=== PATIENT | male | born 1980 | race Two or more races ===

== ENCOUNTER 2017-03-29 19:54 | Emergency (ER) | payer SELFPAY ==
[~2017-03-29] VITALS: Ht 180.3 cm; Wt 81.6 kg
[2017-03-29 20:04] VITALS: BP 174/98
[2017-03-29] MEDS ORDERED: Metoclopramide 10mg/2ml Inj IVP ONE (20:45)
[2017-03-29 21:18] LABS: EOSINOPHILS % (AUTO) 0.9 % (0.0-3.0); LYMPHOCYTES % (AUTO) 30.8 % (20.0-45.0); MEAN CORPUSCULAR HEMOGLOBIN 28.7 PG (27.0-31.0); MEAN CORPUSCULAR HGB CONC 32.1 G/DL (32.0-36.0); MEAN CORPUSCULAR VOLUME 90 FL (80-99); MEAN PLATELET VOLUME 5.2 FL (6.5-10.1); MONOCYTES % (AUTO) 5.5 % (1.0-10.0); NEUTROPHILS % (AUTO) 61.8 % (45.0-75.0); PLATELET COUNT 347 K/UL (150-450); RED BLOOD COUNT 5.61 M/UL (4.70-6.10); RED CELL DISTRIBUTION WIDTH 12.5 % (11.6-14.8); WHITE BLOOD COUNT 7.7 K/UL (4.8-10.8)
[2017-03-29 21:25] LABS: ALANINE AMINOTRANSFERASE 49 U/L (12-78); ALBUMIN/GLOBULIN RATIO 1.1 (1.0-2.7); ANION GAP 10 mmol/L (5-15); ASPARTATE AMINO TRANSFERASE 29 U/L (15-37); CALCIUM 9.5 MG/DL (8.5-10.1); CARBON DIOXIDE 27 MMOL/L (21-32); CHLORIDE 103 MMOL/L (98-107); CREATININE 1.1 MG/DL (0.55-1.30); GLOMERULAR FILTRATION RATE > 60 mL/min (>60); POTASSIUM 3.6 MMOL/L (3.5-5.1); SODIUM 140 MMOL/L (136-145); TOTAL PROTEIN 7.9 G/DL (6.4-8.2)
[2017-03-29] MEDS ORDERED: IMODIUM2 MG ORAL (21:29)
[2017-03-29 21:57] VITALS: BP 125/83
[2017-03-29 21:58] VITALS: BP 125/83
--- NOTE | 2017-03-30 10:47 | Diagnostic Imaging Report ---
Indication: Headache Technique: Contiguous 5 mm thick transaxial imaging of the head obtained in a Siemens Sensation [address] scanner. Soft tissue and bone windows generated. Total Dose length Product (DLP): [address] Dose Index Volume (CTDIvol): 70.38, 0.15 mGy Comparison: none Findings: The size and configuration of the cortical sulci, basal cisterns, and ventricles are within normal limits for age. There is no mass effect, midline shift, or edema identified. There is no evidence of acute hemorrhage or abnormal intra-axial or extra-axial fluid collections. The bones and soft tissues are unremarkable. Impression: No mass effect, edema or acute bleed. The CT scanner at [facility] is accredited by the [employer] and the scans are performed using dose optimization techniques as appropriate to a performed exam including Automatic Exposure control.
--- NOTE | 2017-04-01 07:18 | Emergency Room Report ---
History of Present Illness General Chief Complaint: Headache Source: Patient Present Illness HPI Patient is a 36-year-old male who presented after increased headache. The patient gradual onset of symptoms. He reported having nasal congestion as well as cough. He denied any fever. The patient reported having one episode of vomiting. He denies any neck stiffness. He had not been having a sore throat. Patient been having vomiting as well as diarrhea. Allergies: Coded Allergies: No Known Allergies (Unverified , 03/29/17) Patient History Past Medical History: see triage record Reviewed Nursing Documentation: PMH: Agreed, PSxH: Agreed Nursing Documentation-PMH Past Medical History: No Stated History Review of Systems All Other Systems: negative except mentioned in HPI Physical Exam Vital Signs Date Time Temp Pulse Resp B/P (MAP) Pulse Ox O2 Delivery O2 Flow Rate FiO2 03/29/17 19:56 97.7 92 18 174/98 98 Room Air General Appearance: well appearing, no apparent distress, alert, GCS 15, non- toxic Head: normocephalic, atraumatic ENT: hearing grossly normal, normal voice Neck: full range of motion, supple Respiratory: lungs clear, no respiratory distress, speaking full sentences Musculoskeletal: no calf tenderness Neurologic: normal gait Psychiatric: mood/affect normal Skin: no rash Medical Decision Making Diagnostic Impression: Primary Impression: Headache Additional Impression: Viral gastroenteritis ER Course Patient presented for headache. Differential diagnoses included but was not limited to skull fracture, subarachnoid hemorrhage, meningitis, aneurysm, mass lesion, intracranial hemorrhage.Because of complexity of patient's case imaging studies were ordered. CT head read by cardiology showed no evidence of intracranial hemorrhage or CVA. The patient is advised to follow up with primary care doctor in 1-2 days. Patient is advised to return if any worsening condition or if any changes in status that are concerning. Labs Test 03/29/17 20:45 White Blood Count 7.7 K/UL (4.8-10.8) Red Blood Count 5.61 M/UL (4.70-6.10) Hemoglobin 16.1 G/DL (14.2-18.0) Hematocrit 50.3 % (42.0-52.0) Mean Corpuscular Volume 90 FL (80-99) Mean Corpuscular Hemoglobin 28.7 PG (27.0-31.0) Mean Corpuscular Hemoglobin Concent 32.1 G/DL (32.0-36.0) Red Cell Distribution Width 12.5 % (11.6-14.8) Platelet Count 347 K/UL (150-450) Mean Platelet Volume 5.2 FL (6.5-10.1) Neutrophils (%) (Auto) 61.8 % (45.0-75.0) Lymphocytes (%) (Auto) 30.8 % (20.0-45.0) Monocytes (%) (Auto) 5.5 % (1.0-10.0) Eosinophils (%) (Auto) 0.9 % (0.0-3.0) Basophils (%) (Auto) 1.0 % (0.0-2.0) Sodium Level 140 MMOL/L (136-145) Potassium Level 3.6 MMOL/L (3.5-5.1) Chloride Level 103 MMOL/L (98-107) Carbon Dioxide Level 27 MMOL/L (21-32) Anion Gap 10 mmol/L (5-15) Blood Urea Nitrogen 9 mg/dL (7-18) Creatinine 1.1 MG/DL (0.55-1.30) Estimat Glomerular Filtration Rate > 60 mL/min (>60) Glucose Level 108 MG/DL (74-106) Calcium Level 9.5 MG/DL (8.5-10.1) Total Bilirubin 0.5 MG/DL (0.2-1.0) Aspartate Amino Transf (AST/SGOT) 29 U/L (15-37) Alanine Aminotransferase (ALT/SGPT) 49 U/L (12-78) Alkaline Phosphatase 65 U/L (46-116) Total Protein 7.9 G/DL (6.4-8.2) Albumin 4.2 G/DL (3.4-5.0) Globulin 3.7 g/dL Albumin/Globulin Ratio 1.1 (1.0-2.7) Last Vital Signs Date Time Temp Pulse Resp B/P (MAP) Pulse Ox O2 Delivery O2 Flow Rate FiO2 03/29/17 21:58 97.7 80 18 125/83 98 Room Air Status: improved Disposition: HOME, SELF-CARE Condition: Stable Scripts Loperamide HCl (Loperamide) 2 Mg Capsule 2 MG ORAL Q4H, #10 CAP 0 Refills Prov: Gilmer Gandhi 03/29/17 Referrals: NOT CHOSEN IPA/MD,REFERRING (PCP) Patient Instructions: Viral Gastroenteritis, Adult Gilmer Gandhi Apr 01, 2017 07:18
== END 2017-03-29 21:58 | disposition home or self-care (01) ==
LOC: EMR 20:50
DX: R51 Headache (principal); A08.4 Viral intestinal infection, unspecified
CPT/HCPCS: 36415; 70450; 80053; 85025; 96374; 96375; 99284; J2765

== ENCOUNTER 2017-04-02 05:45 | Emergency (ER) | payer SELFPAY ==
[~2017-04-02] VITALS: Ht 180.3 cm; Wt 81.6 kg
[~2017-04-02 05:45] MED LIST: IMODIUM2 MG ORAL
[2017-04-02] MEDS ORDERED: ZOFRAN ODT4 MG ORAL (06:38)
[2017-04-02] MEDS ORDERED: BENTYL10 MG ORAL (06:38)
[2017-04-02] MEDS ORDERED: METRONIDAZOLE500 MG ORAL (06:38)
[2017-04-02 06:59] VITALS: BP 154/98
--- NOTE | 2017-04-02 08:24 | Emergency Room Report ---
History of Present Illness General Chief Complaint: Diarrhea Source: Patient Present Illness HPI 36-year-old male presents ED for evaluation. Patient states he's been having persistent diarrhea the last one week. Patient denies any abdominal pain. Denies any fevers or chills. States that prior to onset of diarrhea he did take amoxicillin for a "upper respiratory infection". Patient was seen here a few days ago for the diarrhea and workup included labs, IV fluids. Patient was discharged on the loperamide. Denies sick contacts or recent travel. No other aggravating or relieving factors. Denies any other associated symptoms Allergies: Coded Allergies: No Known Allergies (Unverified , 03/29/17) Patient History Past Medical History: none Past Surgical History: none Pertinent Family History: none Social History: Denies: smoking, alcohol use, drug use Immunizations: UTD Reviewed Nursing Documentation: PMH: Agreed, PSxH: Agreed Nursing Documentation-PMH Past Medical History: No Stated History Review of Systems All Other Systems: negative except mentioned in HPI Physical Exam Vital Signs Date Time Temp Pulse Resp B/P (MAP) Pulse Ox O2 Delivery O2 Flow Rate FiO2 04/02/17 05:54 97.9 75 16 154/98 96 Room Air Sp02 EP Interpretation: reviewed, normal General Appearance: no apparent distress, alert, GCS 15, non-toxic Head: normocephalic, atraumatic Eyes: bilateral eye normal inspection, bilateral eye PERRL ENT: hearing grossly normal, normal pharynx, no angioedema, normal voice Neck: full range of motion, supple/symm/no masses Respiratory: chest non-tender, lungs clear, normal breath sounds, speaking full sentences Cardiovascular #1: regular rate, rhythm, no edema Cardiovascular #2: 2+ carotid (R), 2+ carotid (L), 2+ radial (R), 2+ radial (L) , 2+ dorsalis pedis (R), 2+ dorsalis pedis (L) Gastrointestinal: normal bowel sounds, non tender, soft, non-distended, no guarding, no rebound Rectal: deferred Genitourinary: normal inspection, no CVA tenderness Musculoskeletal: back normal, gait/station normal, normal range of motion, non- tender Neurologic: alert, oriented x3, responsive, motor strength/tone normal, sensory intact, speech normal Psychiatric: judgement/insight normal, memory normal, mood/affect normal, no suicidal/homicidal ideation Reflexes: 3+ bicep (R), 3+ bicep (L), 3+ tricep (R), 3+ tricep (L), 3+ knee (R) , 3+ knee (L) Skin: normal color, no rash, warm/dry, well hydrated Lymphatic: no adenopathy Medical Decision Making Diagnostic Impression: Primary Impression: Colitis ER Course Hospital Course 36-year-old M presents to ED with persistent diarrhea, weakness x 1 week differential diagnosis: gastritis, SBO, cholecystits, gastroenteritis Clinical course Patient placed on stretcher. On cardiac rn. After initial history, exam reveals a male in no acute distress. Vital stable. Abdominal exam unremarkable. mucus membranes moist. Good capillary refill patient had lab workup a few days ago which was unremarkable I see no reason repeat lab work IV access. Patient agrees However given prior antibiotic use onset of diarrhea I will treat with antibiotics I feel this is a highly complex case requiring extensive working including EKG/ Rhythm strip, Xray/CT/US, Blood/urine lab work, repeat exams while in ED, and administration of strong opiates/narcotics for pain control, admission to hospital or close patient follow up. Diagnosis - colitis Stable and discharged to home with prescriptions for Bentyl, Zofran, Flagyl. Followup with PMD. Return to ED if symptoms recur or worsen Last Vital Signs Date Time Temp Pulse Resp B/P (MAP) Pulse Ox O2 Delivery O2 Flow Rate FiO2 04/02/17 06:59 97.9 16 154/98 96 Room Air 04/02/17 06:59 75 Status: improved Disposition: HOME, SELF-CARE Condition: Stable Scripts Dicyclomine Hcl* (BENTYL*) 10 Mg Capsule 10 MG ORAL FOUR TIMES A DAY, #20 CAP Prov: MELISSA LAUGHLIN M.D. 04/02/17 Ondansetron Odt* (ZOFRAN ODT*) 4 Mg Tab.rapdis 4 MG ORAL Q6H Y for Nausea & Vomiting, #30 TAB 0 Refills Prov: MELISSA LAUGHLIN M.D. 04/02/17 Metronidazole* (FLAGYL*) 500 Mg Tablet 500 MG ORAL THREE TIMES A DAY, #21 TAB Prov: MELISSA LAUGHLIN M.D. 04/02/17 Patient Instructions: Colitis MELISSA LAUGHLIN M.D. Apr 02, 2017 08:24
== END 2017-04-02 07:00 | disposition home or self-care (01) ==
LOC: EMR 06:11
DX: K52.9 Noninfective gastroenteritis and colitis, unspecified (principal)
CPT/HCPCS: 99284

== ENCOUNTER 2017-04-08 04:23 | Emergency (ER) | payer SELFPAY ==
[~2017-04-08] VITALS: Ht 180.3 cm; Wt 81.6 kg
[~2017-04-08 04:23] MED LIST changes: +BENTYL10 MG ORAL; +METRONIDAZOLE500 MG ORAL; +ZOFRAN ODT4 MG ORAL
[2017-04-08 04:30] VITALS: BP 148/97
--- NOTE | 2017-04-08 04:55 | Emergency Room Report ---
History of Present Illness General Chief Complaint: Dizziness Source: Patient (Nilson Harrison M.D.) Present Illness HPI The patient presents complaining of dizziness. He feels the world spinning. He was unable to sleep. He also felt nausea and this was present but did not vomit. He took Zofran and a nauseous heart. The dizziness is somewhat better at this time. He can't state whether there is any position that made it worse. He denies any tinnitus or ear pain. The patient was seen here for colitis. He's been treated with Bentyl, Zofran and metronidazole. He still taking the Flagyl at this time. He states he's felt a lot of acid in his chest when he started on the metronidazole. Smoker without other cardiac risk factors known. (Nilson Harrison M.D.) Allergies: Coded Allergies: No Known Allergies (Unverified , 03/29/17) Patient History Past Medical History: see triage record Social History: Reports: smoking, Denies: alcohol use, drug use Social History Narrative Patient works at a restaurant Reviewed Nursing Documentation: PMH: Agreed, PSxH: Agreed (Nilson Harrison M.D.) Nursing Documentation-PMH Past Medical History: No Stated History (Nilson Harrison M.D.) Review of Systems All Other Systems: negative except mentioned in HPI (Nilson Harrison M.D.) Physical Exam Vital Signs Date Time Temp Pulse Resp B/P (MAP) Pulse Ox O2 Delivery O2 Flow Rate FiO2 04/08/17 04:29 97.5 67 18 148/97 98 Room Air Sp02 EP Interpretation: reviewed, normal General Appearance: well appearing, no apparent distress, GCS 15 Head: normocephalic Eyes: bilateral eye normal inspection ENT: normal ENT inspection, hearing grossly normal, TMs + canals normal, moist mucus membranes Neck: supple Respiratory: chest non-tender, lungs clear, normal breath sounds Cardiovascular #1: regular rate, rhythm, no edema, no JVD, no murmur, no rub Cardiovascular #2: 2+ radial (R) Gastrointestinal: normal inspection, normal bowel sounds, non tender, no mass, non-distended Musculoskeletal: back normal, gait/station normal, normal range of motion Neurologic: alert, oriented x3, grossly normal Psychiatric: mood/affect normal Skin: normal inspection, warm/dry (Nilson Harrison M.D.) Procedures Critical Care Time Critical Care Time Total Critical Care Time: 45 min bedside evaluation and treatment excludes procedures (EKGs). Reason for critical care: + troponin and transfer to higher level of care Possible complications: hypotension, hypertension, PR, shock, arrhythmias, metabolic acidosis, end organ damage, respiratory failure. Interventions: Aspirin, metoprolol, consultation with auditor appraiser, attending Course: Patient complained of dizziness with h/o colitis. + troponin called. First EKG reviewed and sent to [facility]. Aspirin given. Pain free so NTG not used. Metoprolol given as patient slightly tachycardic. Discussed with auditor appraiser. Repeat EKG and evaluation. Discussed with cardiology attending who asked to with-hold heparin. Discussed plan with patient and friend. Arranging transfer to higher level of care. Consultations: nursing staff, transfer center, auditor appraiser and attending, friend Performed by: Dr. Harrison Tolerated well condition = serious (Nilson Harrison M.D.) Medical Decision Making Diagnostic Impression: Primary Impression: NSTEMI (non-ST elevated myocardial infarction) Additional Impressions: Dizziness Myocarditis (suspected) History of recent colitis ER Course The patient presents with dizziness and nausea after being treated for colitis. Differential includes labyrinthitis, adverse reaction to medication, Mnire' s disease amongst others. There is no evidence of dyspnea cerebellar central process and a CT is not indicated. The patient is somewhat improved. Because of the multiple symptom complex patient and 7 EKG and laboratory work. The patient retreated IV hydration and meclizine with Pepcid. He took Zofran recently and this led to improvement with decreased nausea at the moment. EKG shows sinus arrhythmia without any acute changes. Lab called us with a positive troponin. The patient's treated with aspirin and metoprolol. Immediately [facility] was called (5:41). Patient denies any pain at this time and therefore nitrates held. Repeat EKG was done which revealed sinus tachycardia rate of 14 normal intervals normal axis no hyperacute changes. The patient was discussed with Dr. Mccall who is the auditor appraiser. Discussed with Dr. Tobin. Will accept the patient. Specifically requests not to give Heparin. Second troponin is high. Awaiting call back from [facility] - they are requesting discussion with Hospitalist /[employer]. Patient signed out to Dr. Martines after several calls to [facility] with their being unable to hear back from [employer]. Patient improved but in serious condition. Laboratory Tests Test 04/08/17 04:35 04/08/17 05:52 White Blood Count 9.2 K/UL (4.8-10.8) Red Blood Count 5.33 M/UL (4.70-6.10) Hemoglobin 16.0 G/DL (14.2-18.0) Hematocrit 47.2 % (42.0-52.0) Mean Corpuscular Volume 88 FL (80-99) Mean Corpuscular Hemoglobin 30.0 PG (27.0-31.0) Mean Corpuscular Hemoglobin Concent 33.9 G/DL (32.0-36.0) Red Cell Distribution Width 12.4 % (11.6-14.8) Platelet Count 348 K/UL (150-450) Mean Platelet Volume 5.5 FL (6.5-10.1) L Neutrophils (%) (Auto) 58.4 % (45.0-75.0) Lymphocytes (%) (Auto) 32.1 % (20.0-45.0) Monocytes (%) (Auto) 7.6 % (1.0-10.0) Eosinophils (%) (Auto) 1.2 % (0.0-3.0) Basophils (%) (Auto) 0.7 % (0.0-2.0) Urine Color Yellow Urine Appearance Clear Urine pH 6 (4.5-8.0) Urine Specific [place] 1.005 (1.005-1.035) Urine Protein Negative (NEGATIVE) Urine Glucose (UA) Negative (NEGATIVE) Urine Ketones Negative (NEGATIVE) Urine Occult Blood Negative (NEGATIVE) Urine Nitrite Negative (NEGATIVE) Urine Bilirubin Negative (NEGATIVE) Urine Urobilinogen Normal MG/DL (0.0-1.0) Urine Leukocyte Esterase Negative (NEGATIVE) Sodium Level 139 MMOL/L (136-145) Potassium Level 3.9 MMOL/L (3.5-5.1) Chloride Level 104 MMOL/L (98-107) Carbon Dioxide Level 27 MMOL/L (21-32) Anion Gap 9 mmol/L (5-15) Blood Urea Nitrogen 14 mg/dL (7-18) Creatinine 1.0 MG/DL (0.55-1.30) Estimate Glomerular Filtration Rate > 60 mL/min (>60) Glucose Level 109 MG/DL (74-106) H Calcium Level 9.2 MG/DL (8.5-10.1) Total Bilirubin 0.4 MG/DL (0.2-1.0) Aspartate Amino Transferase (AST) 24 U/L (15-37) Alanine Aminotransferase (ALT) 40 U/L (12-78) Alkaline Phosphatase 71 U/L (46-116) Total Creatine Kinase 183 U/L (26-308) Troponin I 5.905 ng/mL (0.000-0.056) 5.987 ng/mL (0.000-0.056) Total Protein 7.5 G/DL (6.4-8.2) Albumin 4.0 G/DL (3.4-5.0) Globulin 3.5 g/dL Albumin/Globulin Ratio 1.1 (1.0-2.7) (Nilson Harrison M.D.) ER Course Please refer to the initial note for the history examined the presentation At this time Dr. Harrison had made contact with cardiology from [facility] And had been recommended for transfer to their facility for high level of care I was contacted by plant general manager Dr apscual She was updated on the patient's clinical presentation And will be excepting the patient to their facility for continued care and cardiology evaluation Patient remains pain-free at this time appropriate Labs Test 04/08/17 04:35 04/08/17 05:52 White Blood Count 9.2 K/UL (4.8-10.8) Red Blood Count 5.33 M/UL (4.70-6.10) Hemoglobin 16.0 G/DL (14.2-18.0) Hematocrit 47.2 % (42.0-52.0) Mean Corpuscular Volume 88 FL (80-99) Mean Corpuscular Hemoglobin 30.0 PG (27.0-31.0) Mean Corpuscular Hemoglobin Concent 33.9 G/DL (32.0-36.0) Red Cell Distribution Width 12.4 % (11.6-14.8) Platelet Count 348 K/UL (150-450) Mean Platelet Volume 5.5 FL (6.5-10.1) Neutrophils (%) (Auto) 58.4 % (45.0-75.0) Lymphocytes (%) (Auto) 32.1 % (20.0-45.0) Monocytes (%) (Auto) 7.6 % (1.0-10.0) Eosinophils (%) (Auto) 1.2 % (0.0-3.0) Basophils (%) (Auto) 0.7 % (0.0-2.0) Urine Color Yellow Urine Appearance Clear Urine pH 6 (4.5-8.0) Urine Specific [place] 1.005 (1.005-1.035) Urine Protein Negative (NEGATIVE) Urine Glucose (UA) Negative (NEGATIVE) Urine Ketones Negative (NEGATIVE) Urine Occult Blood Negative (NEGATIVE) Urine Nitrite Negative (NEGATIVE) Urine Bilirubin Negative (NEGATIVE) Urine Urobilinogen Normal MG/DL (0.0-1.0) Urine Leukocyte Esterase Negative (NEGATIVE) Sodium Level 139 MMOL/L (136-145) Potassium Level 3.9 MMOL/L (3.5-5.1) Chloride Level 104 MMOL/L (98-107) Carbon Dioxide Level 27 MMOL/L (21-32) Anion Gap 9 mmol/L (5-15) Blood Urea Nitrogen 14 mg/dL (7-18) Creatinine 1.0 MG/DL (0.55-1.30) Estimat Glomerular Filtration Rate > 60 mL/min (>60) Glucose Level 109 MG/DL (74-106) Calcium Level 9.2 MG/DL (8.5-10.1) Total Bilirubin 0.4 MG/DL (0.2-1.0) Aspartate Amino Transf (AST/SGOT) 24 U/L (15-37) Alanine Aminotransferase (ALT/SGPT) 40 U/L (12-78) Alkaline Phosphatase 71 U/L (46-116) Total Creatine Kinase 183 U/L (26-308) Troponin I 5.905 ng/mL (0.000-0.056) 5.987 ng/mL (0.000-0.056) Total Protein 7.5 G/DL (6.4-8.2) Albumin 4.0 G/DL (3.4-5.0) Globulin 3.5 g/dL Albumin/Globulin Ratio 1.1 (1.0-2.7) (FABIOLA MARTINES D.O.) EKG Diagnostic Results Rate: normal Rhythm: NSR ST Segments: no acute changes Other Impression See above impression of second EKG ASA given to the pt in ED: Yes (Nilson Harrison M.D.) Rate: normal Rhythm: NSR - sinus arrhythmia ST Segments: other - Questionable, prolonged QRS, nonspecific ST change ASA given to the pt in ED: Yes (FABIOLA MARTINES D.O.) Rhythm Strip Diag. Results EP Interpretation: yes Rhythm: NSR, no PVC's, no ectopy (Nilson Harrison M.D.) EP Interpretation: yes Rate: 65 Rhythm: NSR, no PVC's, no ectopy (FABIOLA MARTINES D.O.) Chest X-Ray Diagnostic Results Chest X-Ray Diagnostic Results : Chest X-Ray Ordered: Yes # of Views/Limited/Complete: 1 View Indication: Chest Pain EP Interpretation: Yes Interpretation: no consolidation, no effusion, no pneumothorax, no acute cardiopulmonary disease Impression: No acute disease Electronically Signed by: Electronically signed by Nilson Harrison MD (Nilson Harrison M.D.) Chest X-Ray Diagnostic Results : Chest X-Ray Ordered: Yes # of Views/Limited/Complete: 1 View Indication: Chest Pain EP Interpretation: Yes Interpretation: no consolidation, no effusion, no pneumothorax Impression: No acute disease Electronically Signed by: Fabiola Martines DO (FABIOLA MARTINES D.O.) Last Vital Signs Date Time Temp Pulse Resp B/P (MAP) Pulse Ox O2 Delivery O2 Flow Rate FiO2 04/08/17 09:52 97.7 86 18 168/96 100 Room Air 102 Status: improved (Nilson Harrison M.D.) Status: improved (FABIOLA MARTINES D.O.) Disposition: XFER SHT-TRM HOSP Condition: Serious - but stable for transfer to higher level of care Referrals: NOT CHOSEN IPA/,REFERRING (PCP) Nilson Harrison M.D. Apr 08, 2017 04:55 FABIOLA MARTINES D.O. Apr 08, 2017 08:32
[2017-04-08 04:59] LABS: BASOPHILS % (AUTO) 0.7 % (0.0-2.0); EOSINOPHILS % (AUTO) 1.2 % (0.0-3.0); LYMPHOCYTES % (AUTO) 32.1 % (20.0-45.0); MEAN CORPUSCULAR HGB CONC 33.9 G/DL (32.0-36.0); MEAN CORPUSCULAR VOLUME 88 FL (80-99); MEAN PLATELET VOLUME 5.5 FL (6.5-10.1); MONOCYTES % (AUTO) 7.6 % (1.0-10.0); NEUTROPHILS % (AUTO) 58.4 % (45.0-75.0); PLATELET COUNT 348 K/UL (150-450); RED BLOOD COUNT 5.33 M/UL (4.70-6.10); RED CELL DISTRIBUTION WIDTH 12.4 % (11.6-14.8); WHITE BLOOD COUNT 9.2 K/UL (4.8-10.8)
[2017-04-08] MEDS ORDERED: Meclizine 25mg tab ORAL PRN (05:00)
[2017-04-08 05:11] LABS: APPEARANCE,URINE CLEAR; KETONES,URINE NEGATIVE (NEGATIVE); LEUKOCYTE ESTERASE ,URINE NEGATIVE (NEGATIVE); NITRITE,URINE NEGATIVE (NEGATIVE); PH,URINE 6 (4.5-8.0); PROTEIN,URINE NEGATIVE (NEGATIVE); UROBILINOGEN,URINE NORMAL MG/DL (0.0-1.0)
[2017-04-08 05:26] LABS: ALANINE AMINOTRANSFERASE 40 U/L (12-78); ALBUMIN/GLOBULIN RATIO 1.1 (1.0-2.7); ANION GAP 9 mmol/L (5-15); ASPARTATE AMINO TRANSFERASE 24 U/L (15-37); CALCIUM 9.2 MG/DL (8.5-10.1); CARBON DIOXIDE 27 MMOL/L (21-32); CHLORIDE 104 MMOL/L (98-107); GLOMERULAR FILTRATION RATE > 60 mL/min (>60); POTASSIUM 3.9 MMOL/L (3.5-5.1); SODIUM 139 MMOL/L (136-145); TOTAL PROTEIN 7.5 G/DL (6.4-8.2)
[2017-04-08] MEDS ORDERED: Metoprolol 5mg/5ml Inj IVP STA (05:57)
[2017-04-08 06:13] VITALS: BP 160/95
[2017-04-08 06:40] VITALS: BP 156/104
[2017-04-08 07:20] VITALS: BP 156/102
[2017-04-08 09:25] VITALS: BP 168/96
[2017-04-08 09:52] VITALS: BP 168/96
--- NOTE | 2017-04-08 11:01 | Diagnostic Imaging Report ---
Indication: Dyspnea Comparison: None A single view chest radiograph was obtained. Findings: Cardiomediastinal appearance is within normal limits for age. Pulmonary vascularity is appropriate. The diaphragmatic contour is smooth and costophrenic angles are sharp. No pleural effusions are identified. The bones are unremarkable. Impression: No acute findings
--- NOTE | 2017-04-08 15:27 | Cardiology Report ---
APPROVED REPORT EKG Measurement Heart [id number] Normal sinus rhythm with sinus arrhythmia Normal ECG
--- NOTE | 2017-04-08 15:27 | Cardiology Report ---
APPROVED REPORT EKG Measurement Heart [id number] Sinus tachycardia Otherwise normal ECG
== END 2017-04-08 09:54 | disposition short-term general hospital (02) ==
LOC: EMR 04:42
DX: I21.4 Non-ST elevation (NSTEMI) myocardial infarction (principal); R42 Dizziness and giddiness; Z87.19 Personal history of other diseases of the digestive system
CPT/HCPCS: 36415; 71010; 80053; 81003; 82550; 84484; 85025; 93005; 96361; 96374; 96375; 99285; S0028